=== PATIENT | female | born 1980 | race Two or more races ===

== ENCOUNTER → 2020-01-25 | Emergency (ER) | payer SELFPAY ==
[~2020-01-25] VITALS: Ht 172.7 cm; Wt 54.4 kg
[~2020-01-25] MED LIST: IBUPROFEN600 M1 ORAL; TYLENOL EXTRA500 MG ORAL
[2020-01-25 18:18] VITALS: BP 119/76
--- NOTE | 2020-01-25 18:20 | NUR ---
ED Nurse Note: Pt ambulated to ED c/o LT knee pain s/p slipped and fell happened a week and a half week ago. Pt is AOx4, calm and cooperative, VSS, on RA, afebrile on triage.
--- NOTE | 2020-01-25 18:29 | Emergency Room Report ---
History of Present Illness General Chief Complaint: Lower Extremity Injury Source: Patient Present Illness HPI Disclaimer: Please note that this report is being documented using [employer] technology. This can lead to erroneous entry secondary to incorrect interpretation by the dictating instrument. HPI: 39-year-old female presents for evaluation of left knee pain. The patient was playing on some monkey bars with her children 1 week ago when she slipped and fell hitting her knee against a metal bar. Noted pain and swelling. Has been applying ice and resting. She states the knee continues to throb at night and wakes her up during the night. Tender to palpation just below the kneecap. Able to ambulate, bend the knee. No other injury sustained. Denies head injury or loss of conscious or other injury at this time. PMH: Denied PSH: Denied Allergies: Denied Social Hx: Denied Allergies: Coded Allergies: No Known Allergies (Unverified , 01/25/20) COVID-19 Screening Contact w/high risk pt: No Experienced COVID-19 symptoms?: No COVID-19 Testing performed [employer]: Yes - a month ago COVID-19 Screening: Negative COVID-19 COVID-19 Testing Source: [facility] Patient History Last Menstrual Period: 01/18/20 Now: No Nursing Documentation-PMH Past Medical History: No Stated History Review of Systems All Other Systems: negative except mentioned in HPI Physical Exam Vital Signs Date Time Temp Pulse Resp B/P (MAP) Pulse Ox O2 Delivery O2 Flow Rate FiO2 01/25/20 18:18 98.1 84 19 119/76 (90) 100 Room Air General: Awake and alert, no acute distress HEENT: NC/AT. EOMI. Resp: Normal work of breathing Skin: Intact. No abrasions, laceration or rash over the exposed skin MSK: Normal tone and bulk. Moving all extremities. There is tenderness palpat ion over the medial aspect of the left knee extending over the proximal fibula. Mild overlying swelling. No skin breakdown, no erythema, no warmth. Neuro: Awake and alert. Mentating appropriately Medical Decision Making Diagnostic Impression: Primary Impression: Contusion of knee, left ER Course 39-year-old female presents for evaluation persistent knee pain after an injury 1 week ago. Differential includes was not limited to contusion, fracture, dislocation, strain, sprain. Concern for fracture x-ray was ordered however just after leaving the patient's room I was informed by nursing staff that the patient is changed her mind and no longer wants x-ray. She states she would just like a prescription for anti-inflammatory medications and a knee wrap. Patient is ambulating without difficulty I feel this is reasonable as fracture is likely unlikely however I instructed her to return to the ED for reevaluation if your symptoms fail to improve. She understands agrees with treatment plan was discharged home. Last Vital Signs Date Time Temp Pulse Resp B/P (MAP) Pulse Ox O2 Delivery O2 Flow Rate FiO2 01/25/20 18:18 98.1 84 19 119/76 (90) 100 Room Air Disposition: HOME, SELF-CARE Condition: Stable Scripts Acetaminophen* (TYLENOL EXTRA STRENGTH*) 500 Mg Tablet 500 MG ORAL Q8H PRN for Prn Headache/Temp > 101, #30 TAB 0 Refills Prov: Tirso Ortiz MD 01/25/20 Ibuprofen* (MOTRIN*) 600 Mg Tablet 600 MG ORAL Q6H PRN for For Pain, #30 TAB 0 Refills Prov: Tirso Ortiz MD 01/25/20 Tirso Ortiz MD Jan 25, 2020 18:29
--- NOTE | 2020-01-25 18:37 | NUR ---
ER DISCHARGE NOTE: Patient is cleared to be discharged per ERMD, pt is aox4, on room air, with stable vital signs. pt was given dc and prescription instructions, pt was able to verbalize understanding, pt id band removed. pt is able to ambulate with steady gait. pt took all belongings.
== END | disposition home or self-care (01) ==
LOC: EMR 18:30
DX: S80.02XA Contusion of left knee, initial encounter (principal); W19.XXXA Unspecified fall, initial encounter; Y92.9 Unspecified place or not applicable
CPT/HCPCS: 99282